=== PATIENT | male | born 1960 | race Caucasian/White ===

== ENCOUNTER → 2023-06-27 07:35 | Outpatient (REF) | payer BC, SELFPAY | LOC: HWRAD 07:35 | PROVIDERS: ATTENDING PHYSICIAN Family Medicine | DX: M54.2 Cervicalgia (principal) | CPT/HCPCS: 72050; 72072 ==

== ENCOUNTER → 2023-07-18 10:36 | Outpatient (REF) | payer BC, SELFPAY | LOC: MRI 3T 10:36 | PROVIDERS: ATTENDING PHYSICIAN Student in an Organized Health Care Education/Training Program; FAMILY PHYSICIAN Family Medicine; REFERRING PHYSICIAN Radiology Diagnostic Radiology | DX: Z13.89 Encounter for screening for other disorder (principal) | CPT/HCPCS: 70030; 72141 ==

== ENCOUNTER → 2024-04-04 07:04 | Outpatient (REF) | payer BC, SELFPAY | LOC: MRI 3T 07:04 | PROVIDERS: ATTENDING PHYSICIAN Specialist; FAMILY PHYSICIAN Family Medicine | DX: M54.16 Radiculopathy, lumbar region (principal) | CPT/HCPCS: 72148 ==

== ENCOUNTER 2024-08-09 11:47 | Emergency (ER) | payer BC, SELFPAY ==
[2024-08-09 11:49] VITALS: BP 121/81
[2024-08-09 12:16] LABS: % Basophils 1.3 % (0-2); % Immature Granulocytes 0.3 % (0-0.5); % Lymphocytes 31.6 % (20.5-51.1); % Monocytes 4.8 % (1.7-9.3); Absolute Basophils 0.1 10^3/uL (0-0.2); Absolute Eosinophils 0.2 10^3/uL (0-0.7); Absolute Lymphocytes 3.5 10^3/uL (1.2-3.4); Absolute Monocytes 0.5 10^3/uL (0.1-0.6); Absolute Neutrophils 6.7 10^3/uL (1.4-6.5); Hematocrit 43.9 % (39.0-52.0); Hemoglobin 14.6 g/dL (13.0-18.0); Mean Corp Hgb Conc. 33.3 g/dL (33.0-37.0); Mean Corpuscular Hgb 31.3 pg (27.0-31.0); Mean Corpuscular Volume 94.2 fL (80.0-94.0); Mean Platelet Volume 8.7 fL (7.4-10.4); Nucleated Red Blood Cells % 0 % (-); Platelet Count 291 10^3/uL (130-400); Red Blood Cell Count 4.66 10^6/uL (4.70-6.10); Red Cell Dist. Width 12.6 % (11.5-14.5); White Blood Cell Count 11.1 10^3/uL (4.8-10.8)
[2024-08-09 12:25] LABS: ALT (SGPT) 24 U/L (0-50); AST (SGOT) 22 U/L (17-59); Albumin 4.2 g/dl (3.5-5.0); Alkaline Phosphatase 75 U/L (38-126); Blood Urea Nitrogen 24 mg/dl (9-20); Calcium 9.6 mg/dl (8.4-10.2); Carbon Dioxide 25 mmol/L (22-30); Chloride 105 mmol/L (98-107); Glucose 101 mg/dl (70-99); Potassium 4.9 mmol/L (3.5-5.1); Sodium 136 mmol/L (135-145); Total Bilirubin 0.4 mg/dl (0.2-1.3); Total Protein 6.9 g/dl (6.3-8.2); eGFR > 60.00
[2024-08-09 12:37] LABS: Troponin I < 0.012 ng/ml
[2024-08-09 14:04] VITALS: BP 130/81
[2024-08-09 14:14] VITALS: BMI 32.2
--- NOTE | 2024-08-09 14:27 | ED.GENMED ---
History of Present Illness
General
Chief Complaint: Chest Pain
Source: patient
Exam Limitations: none
Time Seen by Provider: 08/09/24 14:02
History of Present Illness
History of Present Illness:
63-year-old male smoker with history of hypertension hyperlipidemia presents with chest pain since last night. He notes a constant ache in the center of his chest that is worse with motion. He denies shortness of breath or pleuritic pain. The
pain does not radiate to his back. No associated nausea. No abdominal pain. He states he was sick a week ago and had an extensive cough. No fever currently. No recent travel leg swelling calf pain or shortness of breath. No other complaints at
this time
Phy Exam
Physical Exam
Physical Exam:
General: Well-appearing male no acute respiratory distress HEENT: Normocephalic atraumatic
Heart: Regular rate and rhythm no murmurs
lungs: Slightly rhonchorous at the base on the right side.
Abdomen is soft nontender nondistended no guarding rebound normal bowel sounds
Extremities: No cyanosis or edema
Skin: Warm no rash
Scores
Heart Score for Chest Pain Patients
STEMI patient?: No
History: Slightly or Non-Suspicious
ECG: Normal
Age: >45 - <65 years
Risk Factors: 1 or 2 Risk Factors
Troponin: </= Normal Limit
Heart Score for Chest Pain Patients: 2
Heart Score Risk: 2.5% MACE over next 6 weeks
Course
Orders/Labs/Results
Orders:
Orders
08/09/24
Electrocardiogram (*1) Stat
Comment: DONE
08/09/24 11:48
EKG [Electrocardiogram (*1)] Urgent
Reason for Study: Chest Pain
EKG- Treatment ONCE
08/09/24 12:00
Complete Blood Count/With Diff Urgent
Comprehensive Metabolic Panel Urgent
Troponin I Urgent
08/09/24 14:17
CR Chest - 2 Views Urgent
Comment:
Reason For Exam: chest pain
08/09/24 15:19
Troponin I Urgent
08/09/24 15:46
CT Chest Angio W/wo Iv Contras Urgent
Comment:
Reason For Exam: chest pain, abnormal xray
Abnormal Lab Results
08/09/24
12:00
WBC 11.1 H 10^3/uL
(4.8-10.8)
RBC 4.66 L 10^6/uL
(4.70-6.10)
MCV 94.2 H fL
(80.0-94.0)
MCH 31.3 H pg
(27.0-31.0)
Absolute Neuts (auto) 6.7 H 10^3/uL
(1.4-6.5)
Absolute Lymphs (auto) 3.5 H 10^3/uL
(1.2-3.4)
BUN 24 H mg/dl
(9-20)
Glucose 101 H mg/dl
(70-99)
08/09/24 12:00
08/09/24 12:00
Vital Signs
Initial and Last Documented VS:
Initial Vital Signs
Temp Pulse Resp BP Pulse Ox
98.5 F 88 18 121/81 100
08/09/24 11:49 08/09/24 11:49 08/09/24 11:49 08/09/24 11:49 08/09/24 11:49
Last Documented Vital Signs
Temp Pulse Resp BP Pulse Ox
98.5 F 77 18 130/75 98
08/09/24 11:49 08/09/24 16:15 08/09/24 16:15 08/09/24 15:00 08/09/24 16:00
MDM/Problems Addressed
Differential Diagnosis Includes:
Chest pain. Constant in nature since yesterday but worse with motion. Consider ACS. No PE risk factors. Not hypoxic or tachycardic. Pain is worse with motion consider musculoskeletal type pain. EKG initially shows sinus rhythm without ischemic
changes. Initial troponin undetectable repeat troponin pending. Chest x-ray pending.
*Critical Care Note
Total Time (30-74mins, 75-104mins- exclusive of procedures): Not Applicable
Update Note
Update Note:
Chest x-ray read by radiologist as subtle prominence noted at the root of the aorta to suggest possible dissection or aneurysm CT recommended. Followed chest x-ray up with CT angio of the chest. There is no dissection or aneurysm. He does have
wall thickening of the distal esophagus to suggest esophagitis. Incidentally there is a nodule noted on the left side of the thyroid. All this information was relayed to the patient. A copy of the CAT scan was printed and given to the patient.
He upon further questioning states that Prilosec was helping his symptoms. I advised that he continue Prilosec and continue with a bland diet. No indication for admission. Stable for discharge
ED Attending Note
-
Portions of this chart may have been created with voice recognition software.� Occasional wrong word or��sound alike� substitutions may have occurred due to the inherent limitations of voice recognition software.
Discharge Plan
Departure
Patient Disposition: Home (Routine Discharge)
Date of Disposition: 08/09/24
Time of Disposition: 17:27
Patient with high blood pressure during this ER visit?: No
Discharge Problem:
Esophagitis
Instructions: Chest Pain PCP Follow Up
Referrals:
Tommie Hdz DO [Family Provider] -
Activity Restrictions/Additional Instructions:
As discussed, it looks like your esophagus is irritated. Continue to use Prilosec. Also as discussed, there is a nodule on the left side of her thyroid. Please follow-up with your doctor for consideration for ultrasound in the future. Return if
worse otherwise
Interventions
Interventions:
*Risk Screen - Suicide Last Done: 08/09/24 11:49
*General Assessment Last Done: 08/09/24 11:49
*Neglect/Abuse Screening Last Done: 08/09/24 11:49
*ED- Fall Risk Assessment Last Done: 08/09/24 14:13
*ED COVID-19 Vaccine History Last Done: 08/09/24 14:13
ED- Cardiac Assessment Last Done: 08/09/24 14:13
Discharge Date and Time
Print Language: SLOVENIAN
[2024-08-09 15:00] VITALS: BP 130/75
[2024-08-09 15:52] LABS: Troponin I < 0.012 ng/ml
== END 2024-08-09 17:38 | disposition home or self-care (01) ==
LOC: EMR 11:47
PROVIDERS: Emergency Medicine; Physician Assistant; EMERGENCY PHYSICIAN Student in an Organized Health Care Education/Training Program; FAMILY PHYSICIAN Family Medicine
DX: K20.90 Esophagitis, unspecified without bleeding (principal); I10 Essential (primary) hypertension; E78.5 Hyperlipidemia, unspecified; F17.200 Nicotine dependence, unspecified, uncomplicated
CPT/HCPCS: 99285; 71046; 71275; 80053; 84484; 85025; 93005; Q9967

== ENCOUNTER → 2024-09-09 15:18 | Outpatient (REF) | payer BC, SELFPAY | LOC: HWRAD 15:18 | PROVIDERS: ATTENDING PHYSICIAN Family Medicine | DX: E04.1 Nontoxic single thyroid nodule (principal) | CPT/HCPCS: 76536 ==

== ENCOUNTER → 2024-10-13 13:24 | Outpatient (REF) | payer BC, SELFPAY ==
[2024-10-13 13:56] VITALS: BP 128/73; BP_SYST 78
== END ==
LOC: RADI 13:24
PROVIDERS: ATTENDING PHYSICIAN Otolaryngology; FAMILY PHYSICIAN Family Medicine
DX: E04.1 Nontoxic single thyroid nodule (principal)
CPT/HCPCS: 88173; 10005